=== PATIENT | male | born 1990 | race Caucasian/White ===

== ENCOUNTER 2018-05-01 12:47 | Outpatient (CLI) | payer BC, SELFPAY ==
--- NOTE | 2018-05-01 13:14 | DI.RAD_ITS ---
SYMPTOMS/DIAGNOSIS: LT FOOT PAIN, M79.672, MEDIAL ASPECT LEFT FOOT: Three views. No bone or joint abnormality is identified. The soft tissues are unremarkable. IMPRESSION: Negative examination.
== END 2018-05-01 13:07 ==
PROVIDERS: Visit Provider Nurse Practitioner Family
DX: M79.672 Pain in left foot (principal)
CPT/HCPCS: 73630